=== PATIENT | male | born 1995 | race Caucasian/White ===

== ENCOUNTER 2021-11-14 20:07 | Emergency (ER) | payer OTHER, SELFPAY ==
[2021-11-14 20:12] VITALS: BP 135/84; PULSE 95; RESP 16; TEMP 36.4; O2SAT 99; BMI 20.4
--- NOTE | 2021-11-14 20:20 | CRLHL7_ITS ---
For Patients: As a result of the Cures Act, medical imaging exams and procedure reports are released immediately into your electronic medical record. You may view this report before your referring provider. If you have questions, please contact your health care provider. Indication: Foreign body. Technique: Two views. Comparison: None. Findings/Impression: 2.6 x 2.6 x 2.9 mm radiopaque foreign body in the volar soft tissues of the wrist projecting between the distal radius and ulna. No fracture or malalignment. No joint space narrowing or erosion. No subcutaneous gas. Dictated by Chris Farmer MD @ 11/14/2021 9:19:58 PM (Electronically Signed)
--- NOTE | 2021-11-14 20:26 | ED.GENADULT ---
HPI - General Adult General Chief complaint: Skin/Abscess/Foreign Body Stated complaint: Metal in Wrist Time Seen by Provider: 11/14/21 20:15 History of Present Illness HPI narrative: Patient is a 21 was working today when he had a piece of metal hit him in right wrist anterior medially. He has a small abrasion there feels like there is a piece of metal in the soft tissue. No other issues have been noted he otherwise feels well and has no other major complaints. He does not feel like his tetanus shot is up-to-date. Related Data Home Medications Medication Instructions Recorded Confirmed No Known Home Medications 11/14/21 11/14/21 Allergies Allergy/AdvReac Type Severity Reaction Status Date / Time codeine Allergy Intermediate Depression Verified 11/14/21 20:16 tramadol Allergy Intermediate Rash Verified 11/14/21 20:16 Review of Systems Status of ROS: Reports: 10 or more systems reviewed and unremarkable except as noted in History and below PFSH PFSH Medical History (Updated 11/14/21 @ 20:42 by Kodi Mays MD) ADHD Surgical History (Updated 11/14/21 @ 20:32 by Vasu Silver RN) No significant past surgical history Social History Smoking Status: Current every day smoker What tobacco products do you use: cigarettes How often do you have a drink containing alcohol: 4 or more times a week How many standard drinks containing alcohol do you have on a typical day: 1 or 2 How often do you have six or more drinks on one occasion: Weekly AUDIT-C Alcohol total score: 7 Non-prescribed substance use: denies use service: No Exam Narrative: Exam Narrative: EXAM GENERAL: Patient appears comfortable and well. EYES: No scleral icterus. LYMPH: No supraclavicular or cervical lymphadenopathy. SKIN: Small abrasion of the anterior medial aspect of the right forearm near the wrist. Difficult to tell whether any foreign bodies present. EXT: No dependent lower extremity pedal edema. ABD: Soft, non tender, non distended. PSYCH: Good eye contact, speech is not pressured. Const: Vital Signs, click to edit/add: Vital Signs - 24 hr 11/14/21 20:12 Temperature 97.6 F Pulse Rate [Right Pulse Oximeter] 95 Respiratory Rate 16 Blood Pressure [Ri ght Upper Arm] 135/84 Pulse Oximetry 99 Oxygen Delivery Me thod Room Air Course Course Hospital Course: TD AP given. X-ray of the right wrist ordered. Reevaluation(s) Reevaluation #1: Patient returns her back there is a small metal tissue is any neurovascular abnormalities. I did explain to him that we will treat him symptomatically as well as with oral antibiotics for week. If symptoms worsen or develops any local compressive symptoms would recommend dilatation. Time: 20:39 Vital Signs Vital signs: Initial Vital Signs Temperature 97.6 F 11/14/21 20:12 Temperature Source Temporal Artery Scan 11/14/21 20:12 Pulse Rate 95 11/14/21 20:12 Respiratory Rate 16 11/14/21 20:12 Blood Pressure 135/84 11/14/21 20:12 Blood Pressure Mean 101 11/14/21 20:12 Blood Pressure Position Sitting 11/14/21 20:12 Pulse Oximetry 99 11/14/21 20:12 Oxygen Delivery Method 11/14/21 20:12 Vital Signs Temperature 97.6 F 11/14/21 20:12 Pulse Rate 95 11/14/21 20:12 Respiratory Rate 16 11/14/21 20:12 Blood Pressure 135/84 11/14/21 20:12 Pulse Oximetry 99 11/14/21 20:12 Oxygen Delivery Method 11/14/21 20:12 Temperature 97.6 F 11/14/21 20:12 Pulse Rate 95 11/14/21 20:12 Respiratory Rate 16 11/14/21 20:12 Blood Pressure 135/84 11/14/21 20:12 Pulse Oximetry 99 11/14/21 20:12 Oxygen Delivery Method 11/14/21 20:12 Discharge Plan Discharge Clinical Impression: Foreign body Condition: Stable Instructions: Soft Tissue Foreign Body (ED) Activity Level: No Restrictions Discharge Diet: Regular Prescriptions: No Action No Known Home Medications Stand Alone Forms: MyHealth Info Instructions
[2021-11-14] MEDS: TETANUS/DIPHTH/PERTUSSIS 0.5 ML SYRINGE IM (20:46)
[2021-11-14 20:49] VITALS: BP 125/78; PULSE 89; RESP 16; TEMP 36.4; O2SAT 99
[2021-11-14 20:55] VITALS: BP 125/78; PULSE 89; RESP 16; TEMP 36.4
== END 2021-11-14 20:55 | disposition home or self-care (01) ==
LOC: ED 20:51
PROVIDERS: Emergency Provider Internal Medicine
DX: S60.851A Superficial foreign body of right wrist, initial encounter (principal)
CPT/HCPCS: 73100; 90471; 90715; 99283; 99284